=== PATIENT | male | born 1990 | race African-American/Black ===

== ENCOUNTER 2018-11-21 19:56 | Emergency (ER) | payer SELFPAY ==
[2018-11-21] MEDS ORDERED: ONDANSETRON 4 MG (ODT) TAB ONE (22:04)
--- NOTE | 2018-11-21 23:01 | EDPHYS ---
Physician Documentation [facility] Name: Anthony Lu Age: 28 yrs Sex: Male : 1990 Arrival Date: 11/21/2018 Time: 19:58 Bed 20 Private MD: ED Physician Luis Enrique Martinez HPI: 11/21 21:48 This 28 yrs old Black Male presents to ER via Ambulatory with complaints of Chest Pain, cp Cough, Nausea/Vomiting. 21:48 The patient or guardian reports cough, that is intermittent, flu symptoms, low-grade cp fever, myalgias. 21:48 Onset: The symptoms/episode began/occurred yesterday. Associated signs and symptoms: cp Pertinent positives: chest pain, with cough, vomiting, Pertinent negatives: diarrhea. Severity of symptoms: in the emergency department the symptoms are unchanged despite home interventions. Historical: - Allergies: 20:49 No Known Allergies; bb - Home Meds: 20:49 None [Active]; bb - PMHx: 20:49 None; bb - PSHx: 20:49 None; bb - Immunization history:: Adult Immunizations up to date, Flu vaccine is not up to date. - Social history:: Smoking status: Patient/guardian denies using tobacco, Patient uses alcohol, occasionally. Patient/guardian denies using street drugs. - Ebola Screening: : No symptoms or risks identified at this time. ROS: 21:50 Constitutional: Positive for body aches, Negative for fever. cp 21:50 Eyes: Negative for injury, pain, redness, and discharge. cp 21:50 ENT: Positive for sore throat, Negative for drainage from ear(s), ear pain, difficulty swallowing, difficulty handling secretions. 21:50 Cardiovascular: Positive for chest pain, with cough, Negative for edema, palpitations. 21:50 Respiratory: Positive for cough, Negative for shortness of breath. 21:50 Abdomen/GI: Positive for vomiting, Negative for abdominal pain, diarrhea, constipation. 21:50 Skin: Negative for cellulitis, rash. 21:50 Neuro: Negative for altered mental status, headache. 21:50 All other systems are negative. Exam: 21:50 ECG was reviewed by the Attending Physician. cp 21:58 Constitutional: The patient appears in no acute distress, alert, awake, cp non-diaphoretic, non-toxic, well developed, well nourished. 21:58 Head/Face: Normocephalic, atraumatic. cp 21:58 Eyes: Periorbital structures: appear normal, Conjunctiva: normal, no exudate, no injection, Sclera: no appreciated abnormality, Lids and lashes: appear normal, bilaterally. 21:58 ENT: External ear(s): are unremarkable, Ear canal(s): are normal, clear, TM's: bulging, is not appreciated, bilaterally, dullness, bilaterally, erythema, is not appreciated, bilaterally, Nose: is normal, Mouth: Lips: moist, Oral mucosa: moist, Posterior pharynx: Airway: no evidence of obstruction, patent, Tonsils: with erythema, no enlargement, no exudate, Uvula: normal, swelling, is not appreciated, erythema, that is mild, exudate, is not appreciated, Voice: is normal. 21:58 Neck: ROM/movement: is normal, is supple, without pain, no range of motions limitations, no meningismus, no nuchal rigidity. 21:58 Chest/axilla: Inspection: normal, Palpation: is normal, no crepitus, no tenderness. 21:58 Cardiovascular: Rate: tachycardic, Rhythm: regular. 21:58 Respiratory: the patient does not display signs of respiratory distress, Respirations: normal, no use of accessory muscles, no retractions, no splinting, no tachypnea, labored breathing, is not present, Breath sounds: bronchial sounds, that are mild, are heard diffusely, decreased breath sounds, are not appreciated, stridor, is not appreciated, wheezing: is not appreciated. 21:58 Abdomen/GI: Inspection: abdomen appears normal, Bowel sounds: active, all quadrants, Palpation: abdomen is soft and non-tender, in all quadrants. 21:58 Back: pain, is absent, ROM is normal. 21:58 Skin: cellulitis, is not appreciated, no rash present. 21:58 Neuro: Orientation: is normal, Mentation: is normal, Cerebellar function: is grossly normal, Motor: moves all fours, strength is normal. Vital Signs: 20:49 BP 101 / 71; Pulse 105; Resp 18 S; Temp 99.3(O); Pulse Ox 96% on R/A; Weight 108.86 kg bb (R); Height 6 ft. 0 in. (182.88 cm) (R); Pain 7/10; 22:30 Pulse 100; Resp 17 S; Pulse Ox 97% on R/A; jd3 20:49 Body Mass Index 32.55 (108.86 kg, 182.88 cm) MDM: 21:41 Patient medically screened. cp 22:00 Differential diagnosis: bronchitis, flu, pneumonia, gastritis, dehydration. cp 23:00 Data reviewed: vital signs, nurses notes, lab test result(s), EKG, radiologic studies, cp plain films, and as a result, I will discharge patient. 23:00 Test interpretation: by ED physician or midlevel provider: ECG, plain radiologic cp studies. ED course: VSS. Nausea improved and patient tolerating po fluids. Will discharge to home for continued monitoring. 11/21 20:51 Order name: Flu; Complete Time: 21:48 11/21 20:51 Order name: XRAY Chest Pa And Lat (2 Views) 11/21 22:54 Order name: PO challenge; Complete Time: 23:05 cp EC:50 Rate is 76 beats/min. Rhythm is regular. MN interval is normal. QRS interval is normal. cp QT interval is normal. Interpreted by me. Reviewed by me. Administered Medications: 21:55 Drug: Zofran 4 mg Route: PO; jd3 23:05 Follow up: Response: No adverse reaction; Nausea is decreased j 23:12 Drug: Tamiflu 75 mg Route: PO; jd3 23:12 Follow up: Response: Medication administered at discharge. j Disposition: 11/22 06:53 Co-signature as Attending Physician, Luis Enrique Martinez MD I agree with the assessment and emil plan of care. Disposition: 11/21/18 23:00 Discharged to Home. Impression: Influenza due to identified novel influenza A virus with other respiratory manifestations. - Condition is Stable. - Discharge Instructions: Influenza, Adult. - Prescriptions for Tamiflu 75 mg Oral Capsule - take 1 capsule by ORAL route every 12 hours for 5 days; 10 capsule. Zofran 4 mg Oral Tablet - take 1 tablet by ORAL route every 12 hours As needed; 20 tablet. Tessalon Perles 100 mg Oral Capsule - take 2 capsule by ORAL route every 8 hours As needed; 20 capsule. Zithromax Z- Arnie 250 mg Oral Tablet - take 1 tablet by ORAL route as directed for 5 days Day 1 - take two (2) tablets one time. Day 2, 3, 4 , 5 take one (1) tablet once daily.; 6 tablet. - Work release form, Medication Reconciliation Form, Thank You Letter, Antibiotic Education, Prescription Opioid Use form. - Follow up: Private Physician; When: 2 - 3 days; Reason: Recheck today's complaints. Signatures: Dispatcher [employer] EDME Luis Enrique Martinez MD MD cha Ballard, Brenda RN RN Luis Enrique Dykes PA PA cp Davies, Jonathon, RN RN jd3 Corrections: (The following items were deleted from the chart) 11/21 23:14 23:00 11/21/2018 23:00 Discharged to Home. Impression: Influenza due to identified jd3 novel influenza A virus with other respiratory manifestations. Condition is Stable. Forms are Medication Reconciliation Form, Thank You Letter, Antibiotic Education, Prescription Opioid Use. Follow up: Private Physician; When: 2 - 3 days; Reason: Recheck today's complaints. latesha 23:18 23:14 11/21/2018 23:00 Discharged to Home. Impression: Influenza due to identified bb novel influenza A virus with other respiratory manifestations. Condition is Stable. Discharge Instructions: Influenza, Adult. Prescriptions for Tamiflu 75 mg Oral Capsule - take 1 capsule by ORAL route every 12 hours for 5 days; 10 capsule, Zofran 4 mg Oral Tablet - take 1 tablet by ORAL route every 12 hours As needed; 20 tablet, Tessalon Perles 100 mg Oral Capsule - take 2 capsule by ORAL route every 8 hours As needed; 20 capsule, Zithromax Z-Arnie 250 mg Oral Tablet - take 1 tablet by ORAL route as directed for 5 days Day 1 - take two (2) tablets one time. Day 2, 3, 4 , 5 take one (1) tablet once daily.; 6 tablet. and Forms are Medication Reconciliation Form, Thank You Letter, Antibiotic Education, Prescription Opioid Use. Follow up: Private Physician; When: 2 - 3 days; Reason: Recheck today's complaints. jd3
--- NOTE | 2018-11-21 23:01 | ER ---
Nurse's Notes [facility] Name: Anthony Lu Age: 28 yrs Sex: Male : 1990 Arrival Date: 11/21/2018 Time: 19:58 Bed 20 Private MD: Diagnosis: Influenza due to identified novel influenza A virus with other respiratory manifestations Presentation: 11/21 20:48 Presenting complaint: Patient states: he has been coughing since Tuesday and has vomited bb x 2, he is having chest pain with coughing denies fever and has not taken any medication. Transition of care: patient was not received from another setting of care. Onset of symptoms was November 20, 2018. Risk Assessment: Do you want to hurt yourself or someone else? Patient reports no desire to harm self or others. Initial Sepsis Screen: Does the patient meet any 2 criteria? No. Patient's initial sepsis screen is negative. Does the patient have a suspected source of infection? No. Patient's initial sepsis screen is negative. Care prior to arrival: None. 20:48 Method Of Arrival: Ambulatory bb 20:48 Acuity: GOLDIE 3 bb Historical: - Allergies: 20:49 No Known Allergies; bb - Home Meds: 20:49 None [Active]; bb - PMHx: 20:49 None; bb - PSHx: 20:49 None; bb - Immunization history:: Adult Immunizations up to date, Flu vaccine is not up to date. - Social history:: Smoking status: Patient/guardian denies using tobacco, Patient uses alcohol, occasionally. Patient/guardian denies using street drugs. - Ebola Screening: : No symptoms or risks identified at this time. Screenin:42 Abuse screen: Denies threats or abuse. Nutritional screening: No deficits noted. jd3 Tuberculosis screening: No symptoms or risk factors identified. Fall Risk Ambulatory Aid- None/Bed Rest/Nurse Assist (0 pts). Gait- Normal/Bed Rest/Wheelchair (0 pts) Mental Status- Oriented to own ability (0 pts). Total Randolph Fall Scale indicates No Risk (0-24 pts). Assessment: 21:41 General: Appears in no apparent distress. uncomfortable, Behavior is calm, cooperative, jd3 appropriate for age. Pain: Complains of pain in chest Pain does not radiate. Pain began 1 day ago. Neuro: Level of Consciousness is awake, alert, obeys commands, Oriented to person, place, time, situation. Cardiovascular: Heart tones S1 S2 present Capillary refill < 3 seconds Patient's skin is warm and dry. Respiratory: Reports cough that is Airway is patent Respiratory effort is even, unlabored, Respiratory pattern is regular, symmetrical. GI: Abdomen is round non-distended, Reports nausea. : No signs and/or symptoms were reported regarding the genitourinary system. EENT: No signs and/or symptoms were reported regarding the EENT system. Derm: Skin is intact, Skin is dry, Skin is normal, Skin temperature is warm. Musculoskeletal: Circulation, motion, and sensation intact. Range of motion: intact in all extremities. 23:14 Reassessment: Patient appears in no apparent distress at this time. Patient and/or jd3 family updated on plan of care and expected duration. Pain level reassessed. Patient is alert, oriented x 3, equal unlabored respirations, skin warm/dry/pink. Vital Signs: 20:49 BP 101 / 71; Pulse 105; Resp 18 S; Temp 99.3(O); Pulse Ox 96% on R/A; Weight 108.86 kg bb (R); Height 6 ft. 0 in. (182.88 cm) (R); Pain 7/10; 22:30 Pulse 100; Resp 17 S; Pulse Ox 97% on R/A; jd3 20:49 Body Mass Index 32.55 (108.86 kg, 182.88 cm) bb ED Course: 19:58 Patient arrived in ED. am2 20:49 Triage completed. bb 20:49 Arm band placed on left wrist. Patient placed in waiting room, Patient notified of wait bb time. Family accompanied patient. 21:11 X-ray completed. Patient tolerated procedure well. Patient moved back from radiology. az 21:12 XRAY Chest Pa And Lat (2 Views) In Process Unspecified. EDMS 21:37 Abhilash Cho RN is Primary Nurse. jd3 21:41 Luis Enrique Garcia PA is PHCP. cp 21:41 Luis Enrique Martinez MD is Attending Physician. cp 21:43 Patient has correct armband on for positive identification. Placed in gown. Bed in low jd3 position. Call light in reach. Side rails up X 1. Adult w/ patient. global professional on. Pulse ox on. NIBP on. 21:43 Patient maintains SpO2 saturation greater than 95% on room air. jd3 23:13 No provider procedures requiring assistance completed. Patient did not have IV access jd3 during this emergency room visit. 23:15 Primary Nurse role handed off by Abhilash Cho, RN bb Administered Medications: 21:55 Drug: Zofran 4 mg Route: PO; jd3 23:05 Follow up: Response: No adverse reaction; Nausea is decreased jd3 23:12 Drug: Tamiflu 75 mg Route: PO; jd3 23:12 Follow up: Response: Medication administered at discharge. jd3 Outcome: 23:00 Discharge ordered by MD. cp 23:13 Discharged to home ambulatory, with family. jd3 23:13 Condition: stable 23:13 Discharge instructions given to patient, family, Instructed on discharge instructions, follow up and referral plans. medication usage, Demonstrated understanding of instructions, follow-up care, medications, Prescriptions given X 4. 23:14 Patient left the ED. jd3 23:18 Patient left the ED. bb Signatures: Dispatcher [employer] EDMS Halley Hawkins RN RN bb Luis Enrique Garcia, Nikole Velasquez cp am2 Abhilash Cho RN RN jd3 Kaila Ashraf
[2018-11-21] MEDS ORDERED: OSELTAMIVIR 75 MG CAP ONE (23:21)
--- NOTE | 2018-11-22 08:01 | RAD REPORT ---
EXAM DESCRIPTION: Kenny Flynn (2 Views)11/21/2018 9:12 pm CLINICAL HISTORY: Cough COMPARISON: None FINDINGS: The lungs appear clear of acute infiltrate. The heart is normal size IMPRESSION: No acute abnormalities displayed
--- NOTE | 2018-11-22 09:55 | EKG ---
Test Date: 2018-11-21 Test Time: 21:41:07 Infant Childcare Provider: PATRICK MEASUREMENT RESULTS: Intervals: Rate: 76 ND: 174 QRSD: 90 QT: 362 QTc: 407 [place]: P: 50 ND: 174 QRS: 44 T: 23 INTERPRETIVE STATEMENTS: Normal sinus rhythm with sinus arrhythmia Normal ECG No previous ECG available for comparison Electronically Signed On 11-22-18 09:54:16 LOCKSTITCH FRONT ED[employer] TAPE SEWER by Jonh Hernandez
== END 2018-11-21 23:18 | disposition home or self-care (01) ==
LOC: ER 19:56
DX: J11.1 Influenza due to unidentified influenza virus with other respiratory manifestations (principal)
CPT/HCPCS: 71046; 87804; 93005; 99285

== ENCOUNTER 2022-12-07 02:34 | Emergency (ER) | payer SELFPAY ==
--- NOTE | 2022-12-07 03:10 | ER ---
Nurse's Notes [facility] Name: Anthony Lu Age: 32 yrs Sex: Male : 1990 Arrival Date: 12/07/2022 Time: 02:38 Bed 20 Private MD: Diagnosis: Chest wall pain Presentation: 12/07 02:55 Chief complaint: Parent and/or Guardian states: He was vomiting yesterday and became jb4 very sweaty and saturated his clothing and had to take a shower. Now he is reporting chest pain. Coronavirus screen: At this time, the client does not indicate any symptoms associated with coronavirus-19. Ebola Screen: No symptoms or risks identified at this time. Risk Assessment: Do you want to hurt yourself or someone else? Patient reports no desire to harm self or others. Onset of symptoms was December 06, 2022. 02:55 Method Of Arrival: Ambulatory jb4 02:55 Acuity: GOLDIE 3 jb4 Historical: - Allergies: 02:56 No Known Allergies; jb4 - Home Meds: 02:56 None [Active]; jb4 - PMHx: 02:56 None; jb4 - PSHx: 02:56 None; jb4 - Immunization history:: Adult Immunizations unknown. - Social history:: Smoking status: Reported history of juuling and/or vaping. Patient uses alcohol. Screenin:04 [facility] ED Fall Risk Assessment (Adult) History of falling in the last 3 months, jb4 including since admission No falls in past 3 months (0 pts) Confusion or Disorientation No (0 pts) Score/Fall Risk Level 0 - 2 = Low Risk Oriented to surroundings, Maintained a safe environment. Abuse screen: Denies threats or abuse. Nutritional screening: No deficits noted. Tuberculosis screening: No symptoms or risk factors identified. Assessment: 03:04 General: Appears in no apparent distress. comfortable, Behavior is calm, cooperative, jb4 appropriate for age. Pain: Complains of pain in chest Pain does not radiate. Neuro: Level of Consciousness is awake, alert, obeys commands, Oriented to person, place, time, situation. Cardiovascular: Patient's skin is warm and dry. Respiratory: Airway is patent Respiratory effort is even, unlabored, Respiratory pattern is regular, symmetrical. GI: Reports nausea, vomiting. : No signs and/or symptoms were reported regarding the genitourinary system. EENT: No signs and/or symptoms were reported regarding the EENT system. Derm: Skin is intact, Skin is dry, Skin is normal, Skin temperature is warm. Musculoskeletal: Circulation, motion, and sensation intact. Range of motion: intact in all extremities. Vital Signs: 03:03 BP 124 / 77; Pulse 85; Resp 16; Temp 97.8(O); Pulse Ox 100% on R/A; Weight 90.72 kg jb4 (R); Height 6 ft. 0 in. (182.88 cm) (R); Pain 10/10; 03:03 Body Mass Index 27.12 (90.72 kg, 182.88 cm) jb4 ED Course: 02:38 Patient arrived in ED. jj6 02:42 Glo Smith MD is Attending Physician. sp3 02:55 Sim Price, RN is Primary Nurse. jb4 02:56 Triage completed. jb4 03:02 CXR XRAY In Process Unspecified. EDMS 03:04 Arm band placed on right wrist. EKG completed in triage. Results shown to MD. jb4 03:04 Patient has correct armband on for positive identification. Client placed on continuous jb4 cardiac and pulse oximetry monitoring. NIBP monitoring applied. manager sourcing on. 03:04 No provider procedures requiring assistance completed. Patient did not have IV access jb4 during this emergency room visit. Patient maintains SpO2 saturation greater than 95% on room air. Administered Medications: 03:14 Drug: Motrin (ibuprofen) 800 mg Route: PO; jb4 03:14 Follow up: Response: Medication administered at discharge. jb4 Medication: 03:04 VIS not applicable for this client. jb4 Outcome: 03:09 Discharge ordered by . sp3 03:14 Discharged to home ambulatory, with family. jb4 03:14 Condition: stable 03:14 Discharge instructions given to patient, Instructed on discharge instructions, follow up and referral plans. Demonstrated understanding of instructions, follow-up care. 03:15 Patient left the ED. jb4 Signatures: Dispatcher [employer] EDMS Sim Price, RN RN jb4 Glo Smith MD MD sp3 Crystal Goddard jj6
--- NOTE | 2022-12-07 03:10 | EDPHYS ---
Physician Documentation [facility] Name: Anthony Lu Age: 32 yrs Sex: Male : 1990 Arrival Date: 12/07/2022 Time: 02:38 Bed 20 Private MD: ED Physician Glo Smith HPI: 12/07 03:03 This 32 yrs old Black Male presents to ER via Ambulatory with complaints of Chest Pain. sp3 03:03 32-year-old male with no past medical history presents with 2-day history of left-sided sp3 chest pain sharp in nature coming and going. Patient denies associated shortness of breath, fever, URI symptoms, back pain, abdominal pain, epigastric pain, nausea, vomiting, diarrhea, syncope, near syncope, neurological symptoms, rash, known sick contacts, travel history, or any other aspect of ROS at this time.. Historical: - Allergies: 02:56 No Known Allergies; jb4 - Home Meds: 02:56 None [Active]; jb4 - PMHx: 02:56 None; jb4 - PSHx: 02:56 None; jb4 - Immunization history:: Adult Immunizations unknown. - Social history:: Smoking status: Reported history of juuling and/or vaping. Patient uses alcohol. ROS: 03:05 Constitutional: Negative for fever, chills, and weight loss, Eyes: Negative for injury, sp3 pain, redness, and discharge, ENT: Negative for injury, pain, and discharge, Neck: Negative for injury, pain, and swelling, Respiratory: Negative for shortness of breath, cough, wheezing, and pleuritic chest pain, Abdomen/GI: Negative for abdominal pain, nausea, vomiting, diarrhea, and constipation, Back: Negative for injury and pain, MS/Extremity: Negative for injury and deformity, Skin: Negative for injury, rash, and discoloration, Neuro: Negative for headache, weakness, numbness, tingling, and seizure, Psych: Negative for depression, anxiety, suicide ideation, homicidal ideation, and hallucinations, Allergy/Immunology: Negative for hives, rash, and allergies, Endocrine: Negative for neck swelling, polydipsia, polyuria, polyphagia, and marked weight changes, Hematologic/Lymphatic: Negative for swollen nodes, abnormal bleeding, and unusual bruising. 03:05 All other systems are negative. Exam: 03:05 Constitutional: This is a well developed, well nourished patient who is awake, alert, sp3 and in no acute distress. Head/Face: Normocephalic, atraumatic. Eyes: Pupils equal round and reactive to light, extra-ocular motions intact. Lids and lashes normal. Conjunctiva and sclera are non-icteric and not injected. Cornea within normal limits. Periorbital areas with no swelling, redness, or edema. Neck: Trachea midline, no thyromegaly or masses palpated, and no cervical lymphadenopathy. Supple, full range of motion without nuchal rigidity, or vertebral point tenderness. No Meningismus. Chest/axilla: Normal chest wall appearance and motion. Nontender with no deformity. No lesions are appreciated. Cardiovascular: Regular rate and rhythm with a normal S1 and S2. No gallops, murmurs, or rubs. Normal PMI, no JVD. No pulse deficits. Respiratory: Lungs have equal breath sounds bilaterally, clear to auscultation and percussion. No rales, rhonchi or wheezes noted. No increased work of breathing, no retractions or nasal flaring. Abdomen/GI: Soft, non-tender, with normal bowel sounds. No distension or tympany. No guarding or rebound. No evidence of tenderness throughout. Back: No spinal tenderness. No costovertebral tenderness. Full range of motion. Skin: Warm, dry with normal turgor. Normal color with no rashes, no lesions, and no evidence of cellulitis. MS/ Extremity: Pulses equal, no cyanosis. Neurovascular intact. Full, normal range of motion. Neuro: Awake and alert, GCS 15, oriented to person, place, time, and situation. Cranial nerves II-XII grossly intact. Motor strength 5/5 in all extremities. Sensory grossly intact. Cerebellar exam normal. Normal gait. Psych: Awake, alert, with orientation to person, place and time. Behavior, mood, and affect are within normal limits. 03:05 ECG was reviewed by the Attending Physician. EKG demonstrates normal sinus rhythm at 80 bpm with normal intervals, normal QRS, normal axis, nonspecific diffuse ST/T changes without evidence of acute ischemia. Vital Signs: 03:03 BP 124 / 77; Pulse 85; Resp 16; Temp 97.8(O); Pulse Ox 100% on R/A; Weight 90.72 kg jb4 (R); Height 6 ft. 0 in. (182.88 cm) (R); Pain 10; 03:03 Body Mass Index 27.12 (90.72 kg, 182.88 cm) jb4 MDM: 02:45 Patient medically screened. sp3 03:07 Data reviewed: vital signs, nurses notes, EKG, radiologic studies. ED course: sp3 32-year-old healthy male with no significant past medical history now with chest pain. Pain is likely musculoskeletal in nature versus mild viral syndrome. Patient is not most communicative. I do not believe he is having coronary syndrome, pulmonary embolism, thoracic aortic dissection or aneurysm, pneumonia, pneumothorax, or any other critical findings at this time. We will safely discharge patient home after 800 mg of ibuprofen with PCP follow-up as needed.. 12/07 02:42 Order name: CXR XRAY sp3 12/07 02:42 Order name: EKG - Nurse/Tech; Complete Time: 03:09 sp3 Administered Medications: 03:14 Drug: Motrin (ibuprofen) 800 mg Route: PO; jb4 03:14 Follow up: Response: Medication administered at discharge. jb4 Disposition Summary: 12/07/22 03:09 Discharge Ordered Location: Home sp3 Condition: Stable sp3 Diagnosis - Chest wall pain sp3 Followup: sp3 - With: Private Physician - When: Upon discharge from the Emergency Department - Reason: If symptoms return Discharge Instructions: - Discharge Summary Sheet sp3 - Chest Wall Pain sp3 Forms: - Medication Reconciliation Form sp3 - Thank You Letter sp3 - Antibiotic Education sp3 - Prescription Opioid Use sp3 Signatures: Dispatcher [employer] Sim Watkins, RN RN jb4 Glo Smith MD MD sp3
[2022-12-07] MEDS ORDERED: IBUPROFEN 400 MG TAB ONE (03:15)
--- NOTE | 2022-12-07 12:50 | EKG ---
Test Date: 2022-12-07 Test Time: 02:59:38 Hospice Case Manager: MOSES MEASUREMENT RESULTS: Intervals: Rate: 79 [place]: 166 QRSD: 94 QT: 374 QTc: 428 [place]: P: 32 MI: 166 QRS: 76 T: 41 INTERPRETIVE STATEMENTS: Normal sinus rhythm Incomplete right bundle branch block Borderline ECG Compared to ECG 11/21/2018 21:41:07 Incomplete right bundle-branch block now present Sinus arrhythmia no longer present Electronically Signed On 12-07-22 12:48:50 STORE [employer] MERCHANDISER by Raj Lovell
--- NOTE | 2022-12-07 13:25 | RAD REPORT ---
EXAM DESCRIPTION: RAD - Chest Single View - 12/07/2022 3:00 am CLINICAL HISTORY: 32 years Male CHEST PAIN COMPARISON: None FINDINGS: Lung volumes adequate. Cardiac silhouette is normal. No pneumothorax. No large pleural effusion. No focal consolidation. No acute bony finding. IMPRESSION: No acute cardiopulmonary findings. Electronically signed by: Kayli Foster MD 12/07/2022 3:13 AM COAL TRAMMER Due to temporary technical issues with the PACS/Fluency reporting system, reports are being signed by the in house radiologists without review as a courtesy to insure prompt reporting. The interpreting radiologist is fully responsible for the content of the report.
== END 2022-12-07 03:15 | disposition home or self-care (01) ==
LOC: ER 02:34
DX: R07.89 Other chest pain (principal)
CPT/HCPCS: 71045; 93005; 99284

== ENCOUNTER 2022-12-11 10:13 | Emergency (ER) | payer SELFPAY ==
[2022-12-11] MEDS ORDERED: DIAZEPAM 2 MG TABLET ONE (10:40)
[2022-12-11] MEDS ORDERED: KETOROLAC 30 MG/ML INJ ONE (10:40)
--- NOTE | 2022-12-11 11:48 | ER ---
Nurse's Notes [facility] Name: Anthony Lu Age: 32 yrs Sex: Male : 1990 Arrival Date: 12/11/2022 Time: 10:14 Bed 11 Private MD: Diagnosis: Low back pain Presentation: 12/11 10:22 Chief complaint: Patient states: woke up at 0100 this morning with low back pain. Pt ss reports it was worse this morning, and seems to be easing up, but wants to get it checked out." No known injury. Coronavirus screen: Client denies travel out of the [place] in the last 14 days. Ebola Screen: Patient denies exposure to infectious person. Patient denies travel to an Ebola-affected area in the 21 days before illness onset. Initial Sepsis Screen: Does the patient meet any 2 criteria? No. Patient's initial sepsis screen is negative. Does the patient have a suspected source of infection? No. Patient's initial sepsis screen is negative. Risk Assessment: Do you want to hurt yourself or someone else? Patient reports no desire to harm self or others. Onset of symptoms was December 11, 2022. 10:22 Method Of Arrival: Ambulatory ss 10:22 Acuity: GOLDIE 4 ss Historical: - Allergies: 10:24 No Known Allergies; ss - Home Meds: 10:24 None [Active]; ss - PMHx: 10:24 None; ss - PSHx: 10:24 None; ss - Immunization history:: Client reports having NOT received the Covid vaccine. - Social history:: Smoking status: Reported history of juuling and/or vaping. Screenin:44 [facility] ED Fall Risk Assessment (Adult) History of falling in the last 3 months, jl7 including since admission No falls in past 3 months (0 pts). Abuse screen: Denies threats or abuse. Denies injuries from another. Nutritional screening: No deficits noted. 11:46 Tuberculosis screening: No symptoms or risk factors identified. jl7 Assessment: 10:44 General: Appears in no apparent distress. uncomfortable, Behavior is calm, cooperative, jl7 appropriate for age. Pain: Complains of pain in left low back Pain radiates to left leg Pain currently is 10 out of 10 on a pain scale. Neuro: Level of Consciousness is awake, alert, obeys commands, Oriented to person, place, time, situation, Moves all extremities. Full function Gait is steady. 10:49 Reassessment: Pt reports unable to provide urine sample at this time, ERP notified. jl7 11:46 Reassessment: Pt attempted to provide urine again and reports unable to void, reports jl7 "I just went and don't need to go." Denies previous symptoms. Reports decreased back pain at this time. Vital Signs: 10:22 BP 121 / 81; Pulse 90; Resp 16; Temp 98.0(TE); Pulse Ox 100% ; Weight 90.72 kg; Height ss 6 ft. 0 in. (182.88 cm); Pain 10/10; 12:00 BP 106 / 86; Pulse 79; Resp 15; Temp 97.9; Pulse Ox 100% ; Pain 2/10; jl7 10:22 Body Mass Index 27.12 (90.72 kg, 182.88 cm) ED Course: 10:14 Patient arrived in ED. am2 10:19 Radha Osuna FNP-C is PHCP. snw 10:19 Glo Smith MD is Attending Physician. snw 10:24 Triage completed. ss 10:24 Arm band placed on right wrist. ss 10:31 Ayush Chaudhary, FAITH is Primary Nurse. jl7 10:44 Patient has correct armband on for positive identification. Bed in low position. Call jl7 light in reach. Side rails up X 1. 10:44 No provider procedures requiring assistance completed. jl7 11:46 Patient did not have IV access during this emergency room visit. jl7 Administered Medications: 10:40 Drug: Valium (diazepam) 2 mg Route: PO; jl7 11:47 Follow up: Response: No adverse reaction; Pain is decreased jl7 10:42 Drug: Ketorolac 60 mg {Note: administered 30 mg to right deltoid and 30 mg to left jl7 deltoid per pt request.} Route: IM; Site: Other; 11:47 Follow up: Response: No adverse reaction; Pain is decreased jl7 Medication: 10:44 VIS not applicable for this client. jl7 Outcome: 11:48 Discharge ordered by . snw 12:00 Discharged to home ambulatory. jl7 12:00 Condition: stable 12:00 Discharge instructions given to patient, Instructed on discharge instructions, follow up and referral plans. medication usage, Demonstrated understanding of instructions, follow-up care, medications, Prescriptions given X 2. 12:06 Patient left the ED. mb9 Signatures: Radha Osuna, FORGE PRESS OPERATOR-C FORGE PRESS OPERATOR-Csnw Ronna Peters, RN RN ss Ayush Chaudhary RN RN jl7 Nikole Llanos Mary Beth RN RN mb9
--- NOTE | 2022-12-11 11:49 | EDPHYS ---
Physician Documentation [facility] Name: Anthony Lu Age: 32 yrs Sex: Male : 1990 Arrival Date: 12/11/2022 Time: 10:14 Bed 11 Private MD: ED Physician Glo Smith HPI: 12/11 10:33 This 32 yrs old Black Male presents to ER via Ambulatory with complaints of Back Pain. snw 10:33 The patient presents with pain that is acute, with no known mechanism of injury. The snw symptoms are located in the low back. Onset: The symptoms/episode began/occurred suddenly, last night. The pain does not radiate. The problem was sustained from unknown cause. Severity of symptoms: At their worst the symptoms were moderate. The patient has experienced a previous episode. The patient has not recently seen a physician. Historical: - Allergies: 10:24 No Known Allergies; ss - Home Meds: 10:24 None [Active]; ss - PMHx: 10:24 None; ss - PSHx: 10:24 None; ss - Immunization history:: Client reports having NOT received the Covid vaccine. - Social history:: Smoking status: Reported history of juuling and/or vaping. ROS: 10:32 Constitutional: Negative for fever, chills, and weight loss, Eyes: Negative for injury, snw pain, redness, and discharge, ENT: Negative for injury, pain, and discharge, Neck: Negative for injury, pain, and swelling, Cardiovascular: Negative for chest pain, palpitations, and edema, Respiratory: Negative for shortness of breath, cough, wheezing, and pleuritic chest pain, Abdomen/GI: Negative for abdominal pain, nausea, vomiting, diarrhea, and constipation, : Negative for injury, bleeding, discharge, and swelling, MS/Extremity: Negative for injury and deformity, Skin: Negative for injury, rash, and discoloration, Neuro: Negative for headache, weakness, numbness, tingling, and seizure, Psych: Negative for depression, anxiety, suicide ideation, homicidal ideation, and hallucinations. 10:32 Back: Positive for pain at rest, pain with movement, of the low back area, mid back area, left mid back and right mid back. Exam: 10:31 Constitutional: This is a well developed, well nourished patient who is awake, alert, snw and in no acute distress. Head/Face: Normocephalic, atraumatic. Eyes: Pupils equal round and reactive to light, extra-ocular motions intact. Lids and lashes normal. Conjunctiva and sclera are non-icteric and not injected. Cornea within normal limits. Periorbital areas with no swelling, redness, or edema. ENT: Nares patent. No nasal discharge, no septal abnormalities noted. Tympanic membranes are normal and external auditory canals are clear. Oropharynx with no redness, swelling, or masses, exudates, or evidence of obstruction, uvula midline. Mucous membranes moist. Neck: Trachea midline, no thyromegaly or masses palpated, and no cervical lymphadenopathy. Supple, full range of motion without nuchal rigidity, or vertebral point tenderness. No Meningismus. Chest/axilla: Normal chest wall appearance and motion. Nontender with no deformity. No lesions are appreciated. 10:31 Respiratory: Lungs have equal breath sounds bilaterally, clear to auscultation and percussion. No rales, rhonchi or wheezes noted. No increased work of breathing, no retractions or nasal flaring. Abdomen/GI: Soft, non-tender, with normal bowel sounds. No distension or tympany. No guarding or rebound. No evidence of tenderness throughout. Skin: Warm, dry with normal turgor. Normal color with no rashes, no lesions, and no evidence of cellulitis. MS/ Extremity: Pulses equal, no cyanosis. Neurovascular intact. Full, normal range of motion. Neuro: Awake and alert, GCS 15, oriented to person, place, time, and situation. Cranial nerves II-XII grossly intact. Motor strength 5/5 in all extremities. Sensory grossly intact. Cerebellar exam normal. Normal gait. Psych: Awake, alert, with orientation to person, place and time. Behavior, mood, and affect are within normal limits. 10:31 Cardiovascular: Rate: tachycardic, Pulses: no pulse deficits are appreciated. 10:31 Back: pain, that is moderate, ROM is painful, normal spinal alignment noted, CVA tenderness, is absent, muscle spasm, is appreciated in the low back area. Vital Signs: 10:22 BP 121 / 81; Pulse 90; Resp 16; Temp 98.0(TE); Pulse Ox 100% ; Weight 90.72 kg; Height ss 6 ft. 0 in. (182.88 cm); Pain 10/10; 12:00 BP 106 / 86; Pulse 79; Resp 15; Temp 97.9; Pulse Ox 100% ; Pain 2/10; jl7 10:22 Body Mass Index 27.12 (90.72 kg, 182.88 cm) ss MDM: 10:25 Patient medically screened. snw 11:46 Differential diagnosis: Fatigue Fracture Scoliosis sprain, UTI. Data reviewed: vital snw signs, nurses notes. Test considered but Not performed: Other Details pt unable to provide urine specimen as he states he recently emptied his bladder. Counseling: I had a detailed discussion with the patient and/or guardian regarding: the historical points, exam findings, and any diagnostic results supporting the discharge/admit diagnosis, the need for outpatient follow up, to return to the emergency department if symptoms worsen or persist or if there are any questions or concerns that arise at home. Special discussion: Based on the history and exam findings, there is no indication for further emergent testing or inpatient evaluation. I discussed with the patient/guardian the need to see the primary care provider for further evaluation of the symptoms. 12/11 10:28 Order name: Urine Microscopic Only snw 12/11 10:28 Order name: Urine Dipstick-Ancillary (obtain specimen); Complete Time: 10:53 snw Administered Medications: 10:40 Drug: Valium (diazepam) 2 mg Route: PO; jl7 11:47 Follow up: Response: No adverse reaction; Pain is decreased jl7 10:42 Drug: Ketorolac 60 mg {Note: administered 30 mg to right deltoid and 30 mg to left jl7 deltoid per pt request.} Route: IM; Site: Other; 11:47 Follow up: Response: No adverse reaction; Pain is decreased jl7 Disposition Summary: 12/11/22 11:48 Discharge Ordered Location: Home snw Condition: Stable snw Diagnosis - Low back pain snw Followup: snw - With: Emergency Department - When: As needed - Reason: Worsening of condition Followup: snw - With: Private Physician - When: 2 - 3 days - Reason: Recheck today's complaints, Continuance of care, Re-evaluation by your physician Discharge Instructions: - Discharge Summary Sheet snw - Acute Back Pain, Adult snw - Musculoskeletal Pain snw - How to Use Cold Therapy snw - Rehydration, Adult snw - Heat Therapy snw Forms: - Medication Reconciliation Form snw - Thank You Letter snw - Antibiotic Education snw - Prescription Opioid Use snw Prescriptions: - Diclofenac Sodium 75 mg Oral Tablet Sustained Release - take 1 tablet by ORAL route 2 times per day; 30 tablet; Refills: 0, Product snw Selection Permitted - orphenadrine citrate 100 mg Oral Tablet Sustained Release - take 1 tablet by ORAL route 2 times per day As needed; 20 tablet; Refills: 0, snw Product Selection Permitted - Pepcid 20 mg Oral Tablet - take 1 tablet by ORAL route once daily; 20 tablet; Refills: 0, Product snw Selection Permitted Signatures: Dispatcher [employer] Radha Yanez FNP-C FNP-Phillyw Ronna Peters, RN RN ss Ayush Chaudhary RN RN jl7
[2022-12-11 12:13] VITALS: BP 121/81; TEMP 98; O2SAT 100
== END 2022-12-11 12:06 | disposition home or self-care (01) ==
LOC: ER 10:13
DX: M54.50 Low back pain, unspecified (principal)
CPT/HCPCS: 96372; 99283

== ENCOUNTER 2023-02-10 17:16 | Emergency (ER) | payer SELFPAY ==
[2023-02-10] MEDS ORDERED: NA CHLORIDE 0.9% 1,000 ML ONE (17:47)
--- NOTE | 2023-02-10 17:54 | ER ---
Nurse's Notes [facility] Name: Anthony Lu Age: 33 yrs Sex: Male : 1990 Arrival Date: 02/10/2023 Time: 17:16 Bed 15 Private MD: Diagnosis: Adverse effect of amphetamines Presentation: 02/10 17:22 Chief complaint: EMS states: PD CALLED FOR AGGRESSION WITH FAMILY AT HOME AFTER DOING bp METH, WHEN CONFRONTED WITH PD PT REQUESTED TRANSPORT TO HOSPITAL "TO GET CHECKED OUT". Coronavirus screen: At this time, the client does not indicate any symptoms associated with coronavirus-19. Ebola Screen: No symptoms or risks identified at this time. Initial Sepsis Screen: Does the patient meet any 2 criteria? No. Patient's initial sepsis screen is negative. Does the patient have a suspected source of infection? No. Patient's initial sepsis screen is negative. Risk Assessment: Do you want to hurt yourself or someone else? Patient reports no desire to harm self or others. Onset of symptoms is unknown. 17:22 Method Of Arrival: EMS: [facility] bp 17:22 Acuity: GOLDIE 5 bp Triage Assessment: 17:24 General: Appears in no apparent distress. Behavior is agitated, anxious. Pain: Denies bp pain. EENT: No deficits noted. Neuro: No deficits noted. Cardiovascular: No deficits noted. Respiratory: No deficits noted. GI: No signs and/or symptoms were reported involving the gastrointestinal system. : No signs and/or symptoms were reported regarding the genitourinary system. Derm: No deficits noted. Musculoskeletal: No deficits noted. Historical: - Allergies: 17:24 No Known Allergies; bp - Home Meds: 17:24 None [Active]; bp - PMHx: 17:24 None; bp - Immunization history:: Adult Immunizations unknown. - Social history:: Smoking status: Patient reports the use of cigarette tobacco products, unknown amount Patient uses street drugs, Methamphetamine (Meth). - Family history:: not pertinent. Screenin:25 [facility] ED Fall Risk Assessment (Adult) History of falling in the last 3 months, bp including since admission No falls in past 3 months (0 pts). Abuse screen: Denies threats or abuse. Denies injuries from another. Nutritional screening: No deficits noted. Tuberculosis screening: No symptoms or risk factors identified. Assessment: 17:25 General: SEE TRIAGE NOTE. bp 17:51 Reassessment: PT DECLINING MEDICAL CARE. AT B/S, NO EMERGENT CONDITION NOTED. PT bp AOx4, AMBULATORY WITH STEADY GAIT. 18:14 Reassessment: DC HOME WITH FAMILY. bp Vital Signs: 17:22 BP 120 / 80; Pulse 100; Resp 16; Temp 98; Pulse Ox 98% ; bp ED Course: 17:21 Patient arrived in ED. eb 17:22 Vince Eugene, RN is Primary Nurse. bp 17:22 Luis Enrique Martinez MD is Attending Physician. emil 17:24 Triage completed. bp 17:25 Arm band placed on. bp 17:25 Patient has correct armband on for positive identification. Bed in low position. Call bp light in reach. Side rails up X2. 17:52 Mannie Herrera MD is Referral Physician. emil 18:14 No provider procedures requiring assistance completed. Patient did not have IV access bp during this emergency room visit. Administered Medications: 18:15 Not Given (Patient Refused): NS 0.9% IV 1000 ml IV at 1 bolus Per protocol; 1000 mL bp bolus Medication: 17:25 VIS not applicable for this client. bp Outcome: 17:53 Discharge ordered by . emil 18:14 Discharged to home ambulatory. bp 18:14 Condition: stable 18:14 Discharge instructions given to patient, Instructed on discharge instructions, follow up and referral plans. Demonstrated understanding of instructions, follow-up care. 18:17 Patient left the ED. bp Signatures: Luis Enrique Martinez MD MD cha Peltier, Brian, RN RN bp Christine Liz
--- NOTE | 2023-02-10 17:54 | EDPHYS ---
Physician Documentation [facility] Name: Anthony Lu Age: 33 yrs Sex: Male : 1990 Arrival Date: 02/10/2023 Time: 17:16 Bed 15 Private MD: ED Physician Luis Enrique Martinez HPI: 02/10 17:49 This 33 yrs old Black Male presents to ER via EMS with complaints of ams sp meth use. emil 17:49 use meth and acted unusual. The patient presents with confusion. Onset: The emil symptoms/episode began/occurred just prior to arrival. Possible causes: drug use, amphetamines. Associated signs and symptoms: Pertinent positives: weakness. Onset: The symptoms/episode began/occurred. Current symptoms: In the emergency department the patient's symptoms have improved, markedly, is more alert. Patient's baseline: Neuro:. Severity of symptoms: At their worst the symptoms were moderate in the emergency department the symptoms have improved moderately. The patient has not experienced similar symptoms in the past. Historical: - Allergies: 17:24 No Known Allergies; bp - Home Meds: 17:24 None [Active]; bp - PMHx: 17:24 None; bp - Immunization history:: Adult Immunizations unknown. - Social history:: Smoking status: Patient reports the use of cigarette tobacco products, unknown amount Patient uses street drugs, Methamphetamine (Meth). - Family history:: not pertinent. ROS: 17:49 Constitutional: Negative for fever, chills, and weight loss, Eyes: Negative for injury, emil pain, redness, and discharge, ENT: Negative for injury, pain, and discharge, Neck: Negative for injury, pain, and swelling, Cardiovascular: Negative for chest pain, palpitations, and edema, Respiratory: Negative for shortness of breath, cough, wheezing, and pleuritic chest pain, Abdomen/GI: Negative for abdominal pain, nausea, vomiting, diarrhea, and constipation, Back: Negative for injury and pain, : Negative for injury, bleeding, discharge, and swelling, MS/Extremity: Negative for injury and deformity, Skin: Negative for injury, rash, and discoloration, Psych: Negative for depression, anxiety, suicide ideation, homicidal ideation, and hallucinations, Allergy/Immunology: Negative for hives, rash, and allergies, Endocrine: Negative for neck swelling, polydipsia, polyuria, polyphagia, and marked weight changes. 17:49 Neuro: Positive for altered mental status. Exam: 17:49 Constitutional: This is a well developed, well nourished patient who is awake, alert, emil and in no acute distress. Head/Face: Normocephalic, atraumatic. Eyes: Pupils equal round and reactive to light, extra-ocular motions intact. Lids and lashes normal. Conjunctiva and sclera are non-icteric and not injected. Cornea within normal limits. Periorbital areas with no swelling, redness, or edema. ENT: Nares patent. No nasal discharge, no septal abnormalities noted. Tympanic membranes are normal and external auditory canals are clear. Oropharynx with no redness, swelling, or masses, exudates, or evidence of obstruction, uvula midline. Mucous membranes moist. Neck: Trachea midline, no thyromegaly or masses palpated, and no cervical lymphadenopathy. Supple, full range of motion without nuchal rigidity, or vertebral point tenderness. No Meningismus. Chest/axilla: Normal chest wall appearance and motion. Nontender with no deformity. No lesions are appreciated. Cardiovascular: Regular rate and rhythm with a normal S1 and S2. No gallops, murmurs, or rubs. Normal PMI, no JVD. No pulse deficits. Respiratory: Lungs have equal breath sounds bilaterally, clear to auscultation and percussion. No rales, rhonchi or wheezes noted. No increased work of breathing, no retractions or nasal flaring. Abdomen/GI: Soft, non-tender, with normal bowel sounds. No distension or tympany. No guarding or rebound. No evidence of tenderness throughout. Back: No spinal tenderness. No costovertebral tenderness. Full range of motion. Skin: Warm, dry with normal turgor. Normal color with no rashes, no lesions, and no evidence of cellulitis. MS/ Extremity: Pulses equal, no cyanosis. Neurovascular intact. Full, normal range of motion. Neuro: Awake and alert, GCS 15, oriented to person, place, time, and situation. Cranial nerves II-XII grossly intact. Motor strength 5/5 in all extremities. Sensory grossly intact. Cerebellar exam normal. Normal gait. Psych: Awake, alert, with orientation to person, place and time. Behavior, mood, and affect are within normal limits. 17:49 Neuro: Orientation: is normal, appropriate for stated age, no acute changes, Mentation: appropriate for stated age, Memory: is normal, Cranial nerves: grossly normal, is grossly normal based on the patient's age, no acute changes, Sensation: is normal, no obvious gross deficits, appropriate no acute changes, Gait: not tested. seizure activity, is not displayed by the patient. Vital Signs: 17:22 BP 120 / 80; Pulse 100; Resp 16; Temp 98; Pulse Ox 98% ; bp MDM: 17:22 Patient medically screened. emil 17:51 Differential Diagnosis altered mental status. Differential Diagnosis: alcohol emil intoxication, overdose. Data reviewed: vital signs, nurses notes. Consideration of Admission/Observation Escalation of care including admission/observation considered. I considered the following discharge prescriptions or medication management in the emergency department Medications were administered in the Emergency Department. See MAR. Test considered but Not performed: Labs: no labs, no ct , no fluids. Care significantly affected by the following chronic conditions: substance abuse. 02/10 17:22 Order name: EKG; Complete Time: 17:23 [facility] 02/10 17:22 Order name: EKG - Nurse/Tech; Complete Time: 18:15 [facility] 02/10 17:22 Order name: Suicide Screening (Brea); Complete Time: 18:16 emil Administered Medications: 18:15 Not Given (Patient Refused): NS 0.9% IV 1000 ml IV at 1 bolus Per protocol; 1000 mL bp bolus Disposition Summary: 02/10/23 17:53 Discharge Ordered Location: Home emil Problem: new emil Symptoms: have improved emil Condition: Stable emil Diagnosis - Adverse effect of amphetamines emil Followup: emil - With: Private Physician - When: 2 - 3 days - Reason: Recheck today's complaints, Re-evaluation by your physician Followup: emil - With: Mannie Herrera MD - When: 2 - 3 days - Reason: Recheck today's complaints, Re-evaluation by your physician Discharge Instructions: - Discharge Summary Sheet emil - Substance Use Disorder emil - Methamphetamines Use Disorder emil - Substance Use Disorder and Mental Illness emil - Supporting Someone With Substance Use Disorder emil Forms: - Medication Reconciliation Form emil - Thank You Letter emil - Antibiotic Education emil - Prescription Opioid Use emil Signatures: Dispatcher [employer] EDMS Juan, Luis Enrique, MD MD emil Valorie, Vince, RN RN bp Corrections: (The following items were deleted from the chart) 18: 17:22 IV Saline Lock ordered. [facility] bp 18:16 17:22 Labs collected and sent ordered. [facility] bp
[2023-02-10 18:22] VITALS: BP 120/80; TEMP 98; O2SAT 98
== END 2023-02-10 18:17 | disposition home or self-care (01) ==
LOC: ER 17:16
DX: R41.82 Altered mental status, unspecified (principal); T43.625A Adverse effect of amphetamines, initial encounter
CPT/HCPCS: 99283; J7030